=== PATIENT | female | born 1940 | race Caucasian/White ===

== ENCOUNTER → 2017-04-01 | Outpatient (CLI) | payer MEDICARE, BC ==
--- NOTE | 2017-04-01 08:00 | US ---
EXAMINATION TYPE: US gallbladder DATE OF EXAM: 04/01/2017 7:24 AM COMPARISON: NONE CLINICAL HISTORY: R10.11 RT UPPER QUAD PAIN. C/O burning sensation RUQ after ingestion of certain maya ds. EXAM MEASUREMENTS: Liver Length: 11.9 cm Gallbladder Wall: 0.2 cm CBD: 0.5 cm Right Kidney: 9.4 x 4.6 x 4.2 cm Pancreas: Tail obscured by overlying bowel gas Liver: wnl Gallbladder: wnl Evidence for sonographic Gupta's sign: CBD: wnl Right Kidney: wnl Visualized pancreas shows duct but appears not suspiciously dilated. No shadowing mobile gallstones. Sonographic Gupta's sign during real-time scanning is not reported by technologist. IMPRESSION: No gallstones or ultrasound evidence for acute cholecystitis.
--- NOTE | 2017-04-02 10:37 | MM ---
Reason for exam: screening (asymptomatic). Last mammogram was performed 1 year ago. History: Patient is postmenopausal. Benign left mammotome panel of the left breast, January 13, 2012. Physical Findings: A clinical breast exam by your physician is recommended on an annual basis and results should be correlated with mammographic findings. MG 3D Screening Mammo W/Cad Bilateral CC and MLO view(s) were taken. Prior study comparison: March 28, 2016, bilateral MG screening mammo w CAD. January 12, 2015, bilateral MG screening mammo w CAD. The breast tissue is heterogeneously dense. This may lower the sensitivity of mammography. Finding: There are typically benign calcifications. There is no discrete abnormality. No significant changes in finding since March 28, 2016 and January 12, 2015. ASSESSMENT: Benign, BI-RAD 2 RECOMMENDATION: Routine screening mammogram of both breasts in 1 year.
== END | disposition home or self-care (01) ==
LOC: RADUSWWP 06:58
PROVIDERS: ATTEND Internal Medicine
DX: Z12.31 Encounter for screening mammogram for malignant neoplasm of breast (principal); R10.11 Right upper quadrant pain
CPT/HCPCS: 77063; 76705; G0202

== ENCOUNTER → 2018-05-11 | Outpatient (CLI) | payer MEDICARE, BC ==
--- NOTE | 2018-05-11 10:17 | BD ---
EXAMINATION TYPE: Axial Bone Density DATE OF EXAM: 05/11/2018 COMPARISON: 2016 CLINICAL HISTORY: post menopausal Height: 5'3 Weight: 144 FRAX RISK QUESTIONS: Secondary Osteoporosis: RISK FACTORS HISTORY OF: Postmenopausal woman: y MEDICATIONS: Additional Medications: cholesterol Additional History: skin cancer EXAM MEASUREMENTS: Bone mineral densitometry was performed using the [employer] System. Bone mineral density as measured about the Lumbar spine is: ----- L1-L4(G/cm2): 1.571 T Score Values are as follows: ----- L2: 3.4 ----- L3: 6.1 ----- L4: 4.5 ----- L1-L4: 3.3 Bone mineral density has: Increased 13.7% since study of: 03/28/2016 Bone mineral density about the R hip (g/cm2): 0.801 Bone mineral density about the L hip (g/cm2): 0.810 T Score values are as follows: -----R Neck: -1.6 -----L Neck: -1.7 -----R Total: -0.4 -----L Total: -0.4 Bone mineral density has: Decreased -1.6% since study of: 03/28/2016 IMPRESSION: Osteopenia (T Score between -2.5 and -1). There is slightly increased risk of fracture and the patient may be considered for treatment. Re-Screen 2-5 years. NOTE: T-SCORE=SD OF THE YOUNG ADULT MEAN.
--- NOTE | 2018-05-12 09:52 | MM ---
Reason for exam: screening (asymptomatic). Last mammogram was performed 1 year and 1 month ago. History: Patient is postmenopausal. Benign left mammotome panel of the left breast, January 13, 2012. Physical Findings: A clinical breast exam by your physician is recommended on an annual basis and results should be correlated with mammographic findings. MG 3D Screening Mammo W/Cad Bilateral CC and MLO view(s) were taken. Prior study comparison: April 01, 2017, bilateral MG 3d screening mammo w/cad. March 28, 2016, bilateral MG screening mammo w CAD. There are scattered fibroglandular densities. Benign appearing bilateral calcifications. There is chronic nodularity in the left breast. No significant changes when compared with prior studies. ASSESSMENT: Benign, BI-RAD 2 RECOMMENDATION: Routine screening mammogram of both breasts in 1 year.
== END | disposition home or self-care (01) ==
LOC: RADMAMWWP 07:44
PROVIDERS: ATTEND Internal Medicine
DX: Z12.31 Encounter for screening mammogram for malignant neoplasm of breast (principal); M85.80 Other specified disorders of bone density and structure, unspecified site; Z78.0 Asymptomatic menopausal state
CPT/HCPCS: 77063; 77067; 77080

== ENCOUNTER 2019-05-11 13:31 | Emergency (ER) | payer MEDICARE, BC ==
[2019-05-11 13:36] VITALS: RESP 18
--- NOTE | 2019-05-11 13:59 | ED ---
General Adult HPI - General Chief complaint: Fall Stated complaint: fall, dizzy Time Seen by Provider: 05/11/19 13:43 Source: patient, family, RN notes reviewed Mode of arrival: wheelchair Limitations: no limitations - History of Present Illness Initial comments: Patient is a pleasant 78-year-old female presenting to the emergency department after a fall. Fall occurred around 10 AM. Patient slipped on the wet floor and did strike her left side of the head. No syncope. No loss of consciousness. Patient has had some mild lightheadedness since that time. No confusion. Discomfort is minimal. No neck or back pain. No chest pain or dyspnea. No abdominal pain. No extremity injury. Patient is not on any blood thinners. Patient did talk to her doctor's office who advised she be evaluated in the emergency department. - Related Data Home Medications Medication Instructions Recorded Confirmed Aspirin EC [Ecotrin Low Dose] 81 mg PO DAILY 05/11/19 05/11/19 Atorvastatin [Lipitor] 20 mg PO HS 05/11/19 05/11/19 Calcium Carbonate/Vitamin D3 1 tab PO BID 05/11/19 05/11/19 [Calcium 600-Vit D3 400 Tablet] Escitalopram Oxalate [Lexapro] 5 mg PO DAILY@1200 05/11/19 05/11/19 Turmeric Root Extract [Turmeric] 500 mg PO DAILY 05/11/19 05/11/19 Ubidecarenone [Co Q-10] 100 mg PO HS 05/11/19 05/11/19 Allergies Allergy/AdvReac Type Severity Reaction Status Date / Time zinc [From Cold-Eeze] Allergy Rash/Hives Verified 05/11/19 14:17 Review of Systems ROS Statement: Those systems with pertinent positive or pertinent negative responses have been documented in the HPI. ROS Other: All systems not noted in ROS Statement are negative. Constitutional: Denies: fever Eyes: Denies: eye pain ENT: Denies: ear pain Respiratory: Denies: cough, dyspnea Cardiovascular: Denies: chest pain Endocrine: Denies: fatigue Gastrointestinal: Denies: abdominal pain Genitourinary: Denies: dysuria Musculoskeletal: Denies: back pain Skin: Denies: rash Neurological: Reports: as per HPI. Denies: confusion Past Medical History Past Medical History: Hyperlipidemia History of Any Multi-Drug Resistant Organisms: None Reported Additional Past Surgical History / Comment(s): D&C Past Psychological History: No Psychological Hx Reported Smoking Status: Never smoker Past Alcohol Use History: None Reported Past Drug Use History: None Reported General Exam Limitations: no limitations General appearance: alert, in no apparent distress Head exam: Present: atraumatic, normocephalic Eye exam: Present: normal appearance, PERRL, EOMI. Absent: nystagmus ENT exam: Present: normal oropharynx Neck exam: Present: normal inspection. Absent: tenderness Respiratory exam: Present: normal lung sounds bilaterally Cardiovascular Exam: Present: regular rate, normal rhythm GI/Abdominal exam: Present: soft. Absent: tenderness Extremities exam: Present: normal inspection, full ROM. Absent: tenderness Back exam: Present: normal inspection. Absent: tenderness, vertebral tenderness Neurological exam: Present: alert, CN II-XII intact. Absent: motor sensory deficit Expanded Neurological exam: Present: protecting the airway Speech: Present: fluid speech Cranial nerves: EOM's Intact: Normal, Nystagmus: Normal Motor strength exam: RUE: 5, LUE: 5, RLE: 5, LLE: 5 Eye Response: (4) open spontaneously Motor Response: (6) obeys commands Verbal Response: (5) oriented Psychiatric exam: Present: normal affect, normal mood Skin exam: Present: normal color Course Vital Signs 05/11/19 13:32 Temperature 98.2 F Pulse Rate 69 Respiratory 18 Rate Blood Pressure 160/89 O2 Sat by Pulse 98 Oximetry Medical Decision Making - Medical Decision Making Patient reevaluated and resting comfortably in bed. Patient does not want any Tylenol or nausea medicine at this time. Patient and family updated on results and need for follow-up. - Radiology Data Radiology results: report reviewed (Computed tomography scan of the brain and cervical spine reveal no acute process) Disposition Clinical Impression: Head injury Disposition: HOME SELF-CARE Condition: Stable Instructions (If sedation given, give patient instructions): Head Injury (ED) Additional Instructions: Please follow-up with primary care physician in the next couple days for recheck. [id number] Tylenol as needed. Return for change in mental status, persistent vomiting, weakness or confusion, worsening symptoms or other concerns. Is patient prescribed a controlled substance at d/c from ED?: No Referrals: Wilson Velasquez MD [Primary Care Provider] - 1-2 days Time of Disposition: 15:19
--- NOTE | 2019-05-11 14:42 | CT ---
EXAMINATION TYPE: CT brain loi martin con DATE OF EXAM: 05/11/2019 COMPARISON: None HISTORY: Trauma and pain, dizziness CT DLP: 1240.1 mGycm Automated exposure control for dose reduction was used. TECHNIQUE: CT scan of the head and cervical spine are performed without contrast. FINDINGS: There is no acute intracranial hemorrhage, mass effect, or midline shift identified. The ventricles and sulci are within normal limits in size. Periventricular white matter shows some patch y low attenuation, low-attenuation present within the anterior limb of the internal capsule on the ri ght, there is cortical atrophy which is likely age-related. The globes are intact and the visualized sinuses are remarkable for possible mucus retention cyst in the antrum of the right maxillary sinus,. Cervical spine is visualized in its entirety from C1 through upper thoracic levels and demonstrates s atisfactory alignment without evidence of acute fracture or dislocation. Prevertebral soft tissue ap pears within normal limits. There is reversal the normal cervical lordosis. Multilevel spondylosis w ith loss of disc height and intervertebral levels is noted, there is multilevel foraminal encroachmen t. The C1-C2 articulation is unremarkable. IMPRESSION: 1. There is no acute fracture or dislocation evident in the cervical spine. 2. No acute intracranial hemorrhage, mass effect, or midline shift is seen.
[2019-05-11 15:28] VITALS: BP 148/69; PULSE 71; TEMP 97.8
== END 2019-05-11 15:28 | disposition home or self-care (01) ==
LOC: EC 13:31
DX: S09.90XA Unspecified injury of head, initial encounter (principal); E78.5 Hyperlipidemia, unspecified; Z79.82 Long term (current) use of aspirin; Z79.899 Other long term (current) drug therapy; Z88.8 Allergy status to other drugs, medicaments and biological substances; W01.198A Fall on same level from slipping, tripping and stumbling with subsequent striking against other object, initial encounter
CPT/HCPCS: 70450; 72125; 99284

== ENCOUNTER → 2019-10-11 | Outpatient (CLI) | payer MEDICARE, BC ==
--- NOTE | 2019-10-13 02:18 | MR ---
EXAMINATION TYPE: MR abdomen wo/w con DATE OF EXAM: 10/11/2019 COMPARISON: CT scan 09/19/2019 HISTORY: Abnormal imaging /Malignant melanoma CONTRAST: Standard multiplanar, multisequence MRI departmental protocol utilizing 6.5 mL intravenous Gadavist g adolinium contrast. FINDINGS: Liver has normal size and contour. I see no focal liver defect. Gallbladder appears normal. Bile ducts are not dilated. Common bile duct appears normal. The pancreas appears normal. Pancreatic duct appears normal. Spleen appears normal. There is a rounded 2 cm mass involving the right adrenal gland. The out of phase images do not show a ny significant fat content. Kidneys have normal size and contour. There is no hydronephrosis. There is no retroperitoneal adenopa thy. There is no ascites. There is no sign of a bowel obstruction. Contrast images show some enhancem ent of the right adrenal mass. There is no sign of pleural effusion. I see no bony destructive proces s. There is hypertrophic spurring in the thoracic and lumbar spine. IMPRESSION: There is a right adrenal mass that does not appear to contain any significant fat and shows enhanceme nt that could relate to metastatic disease. Size is not changed compared to CT scan of 09/19/2019. No other areas that are suspicious metastatic disease in this patient with a history of melanoma. Spondylotic changes in the thoracic and lumbar spine.
== END | disposition home or self-care (01) ==
LOC: RADMRIMAIN 08:44
PROVIDERS: ATTEND Surgery
DX: E27.8 Other specified disorders of adrenal gland (principal); C43.59 Malignant melanoma of other part of trunk; Z85.820 Personal history of malignant melanoma of skin
CPT/HCPCS: 74183; A9585

== ENCOUNTER → 2019-10-21 | Outpatient (CLI) | payer MEDICARE, BC | LOC: LABWHC1 08:19 | PROVIDERS: ATTEND Nurse Practitioner | DX: E27.9 Disorder of adrenal gland, unspecified (principal); R93.429 Abnormal radiologic findings on diagnostic imaging of unspecified kidney | CPT/HCPCS: 36415; 83835 ==

== ENCOUNTER → 2020-07-12 | Outpatient (CLI) | payer MEDICARE, BC ==
--- NOTE | 2020-07-12 16:25 | BD ---
EXAMINATION TYPE: Axial Bone Density DATE OF EXAM: 07/12/2020 COMPARISON: 05/11/2018 CLINICAL HISTORY: 75-year-old female postmenopausal screening Height: 62.5 IN Weight: 146 LBS RISK FACTORS HISTORY OF: Active: YES Postmenopausal woman: AGE 53 MEDICATIONS: Additional Medications: CALCIUM, VIT D, ATORVASTATIN Additional History: MELANOMA LT SHOULDER AGE 79 EXAM MEASUREMENTS: Bone mineral densitometry was performed using the [employer] System. Bone mineral density as measured about the Lumbar spine is: ----- L1-L4(G/cm2): 1.688 T Score Values are as follows: ----- L2: 2.1 ----- L3: 8.2 ----- L4: 7.0 ----- L1-L4: 4.2 These measurements are likely artifactually elevated due to degenerative sclerosis and lumbar spine. Bone mineral density has: Increased 8.7% since study of: 05/11/2018 Bone mineral density about the R hip (g/cm2): 0.781 Bone mineral density about the L hip (g/cm2): 0.833 T Score values are as follows: -----R Neck: -1.8 -----L Neck: -1.5 -----R Total: -0.5 -----L Total: -0.5 Bone mineral density has: Decreased -0.7% since study of: 05/11/2018 IMPRESSION: Osteopenia (T Score between -2.5 and -1). There is slightly increased risk of fracture and the patient may be considered for treatment. Re-Screen 2-5 years. NOTE: T-SCORE=SD OF THE YOUNG ADULT MEAN.
--- NOTE | 2020-07-13 12:14 | MM ---
Reason for exam: screening (asymptomatic). Last mammogram was performed 2 years and 2 months ago. History: Patient is postmenopausal and history of other cancer. Benign left mammotome panel of the left breast, January 13, 2012. Physical Findings: A clinical breast exam by your physician is recommended on an annual basis and results should be correlated with mammographic findings. MG 3D Screening Mammo W/Cad Bilateral CC and MLO view(s) were taken. Prior study comparison: May 11, 2018, bilateral MG 3d screening mammo w/cad. April 01, 2017, bilateral MG 3d screening mammo w/cad. The breast tissue is heterogeneously dense. This may lower the sensitivity of mammography. Benign appearing bilateral calcifications. Previous mammotome biopsy in the left breast. There is chronic nodularity in the left breast. ASSESSMENT: Benign, BI-RAD 2 RECOMMENDATION: Routine screening mammogram of both breasts in 1 year.
== END | disposition home or self-care (01) ==
LOC: RADMAMWWP 07:25
PROVIDERS: ATTEND Internal Medicine
DX: Z12.31 Encounter for screening mammogram for malignant neoplasm of breast (principal); M85.88 Other specified disorders of bone density and structure, other site
CPT/HCPCS: 77063; 77067; 77080

== ENCOUNTER → 2023-07-07 | Outpatient (CLI) | payer MEDICARE, BC ==
--- NOTE | 2023-07-07 12:20 | FL ---
EXAMINATION TYPE: FL barium swallow with upper GI DATE OF EXAM: 07/07/2023 11:27 AM COMPARISON: None. CLINICAL INDICATION:Female, 83 years old with history of R13.10 DYSPHAGIA; TECHNIQUE: The procedure was explained and patient history elicited. All patient questions were ans wered prior to start of procedure. Multiple fluoroscopic spot images of the esophagus, esophagus, st omach and duodenum were obtained following ingestion of liquid barium and EZ-gas crystals. Fluoroscopic time: 1 minute 16 seconds Fluoroscopic images: 0 Radiographs taken: 81 DAP: 2473.86 cGycm2 FINDINGS: The esophagus demonstrates normal primary and secondary peristalsis. Tertiary contractions are presen t. Mild amount of reflux visualized. The esophageal mucosa is smooth without evidence of focal strict ure, ulceration, or abnormal outpouching. No gastroesophageal reflux disease was identified The stomach and duodenum demonstrate a normal course and contour. There is no evidence of focal dwaine kathia or duodenal ulceration, stricture, or abnormal outpouching. IMPRESSION: 1. Esophageal dysmotility 2. Esophageal reflux.
== END | disposition home or self-care (01) ==
LOC: RADUSWWP 10:11
PROVIDERS: ATTEND Family Medicine
DX: K21.9 Gastro-esophageal reflux disease without esophagitis (principal); R13.10 Dysphagia, unspecified; K22.4 Dyskinesia of esophagus
CPT/HCPCS: 74220

== ENCOUNTER → 2025-01-21 | Outpatient (CLI) | payer MEDICARE, BC ==
--- NOTE | 2025-01-21 13:09 | BD ---
EXAMINATION TYPE: Axial Bone Density DATE OF EXAM: 01/21/2025 CLINICAL HISTORY: 84 years old Female. ICD-10 CODE: M85.80 OSTEOPENIA , Additional History: Height: 62.5 Weight: 167 FRAX RISK QUESTIONS: Family History (Parent hip fracture): yes Secondary Osteoporosis: RISK FACTORS HISTORY OF: MEDICATIONS: EXAM MEASUREMENTS: Bone mineral densitometry was performed using the [employer] System. Bone mineral density as measured about the Lumbar spine is: ----- L1-L4(G/cm2): 1.606 T Score Values are as follows: ----- L1: -1.1 ----- L2: 1.9 ----- L3: 5.3 ----- L4: 7.3 ----- L1-L4: 3.6 Z Score Values are as follows: ----- L1: 0.4 ----- L2: 3.4 ----- L3: 6.8 ----- L4: 8.9 ----- L1-L4: 5.1 Bone mineral density has: Decreased -3.0% since study of: 07-24-22 Bone mineral density about the R hip (g/cm2): 0.923 Bone mineral density about the L hip (g/cm2): 0.965 T Score values are as follows: -----R Neck: -2.0 -----L Neck: -1.0 -----R Total: -0.7 -----L Total: -0.3 Z Score values are as follows: -----R Neck: 0.1 -----L Neck: 1.0 -----R Total: 1.3 -----L Total: 1.6 Bone mineral density has: Decreased -0.9% since study of: 07-24-22 FRAX%s: The graph provided illustrates a 29.3% chance for a major osteoporotic fx and a 19.3% chance for the hips probability for fx in 10 years time. IMPRESSION: Osteopenia (T Score between -2.5 and -1). There is slightly increased risk of fracture and the patient may be considered for treatment. Re-Screen 2-5 years. NOTE: T-SCORE=SD OF THE YOUNG ADULT MEAN. [facility], , 01/21/2025 1:06 PM
== END | disposition home or self-care (01) ==
LOC: RADBDWWP 11:41
PROVIDERS: ATTEND Family Medicine
DX: M85.89 Other specified disorders of bone density and structure, multiple sites (principal)
CPT/HCPCS: 77080